=== PATIENT | male | born 1985 | race African-American/Black ===

== ENCOUNTER 2016-08-21 21:36 | Inpatient (IN) | payer MEDICAID ==
[~2016-08-21] VITALS: Ht 182.9 cm; Wt 68.3 kg
[2016-08-21] MEDS ORDERED: MORPHINE SULFATE 4 MG/ML, 1ML IV PRN (22:00)
[2016-08-21] MEDS ORDERED: SODIUM CHLORIDE FLUSH 10ML SYR IVF ONE (22:00)
[2016-08-21] MEDS ORDERED: VANCOMYCIN PER PHARMACY IV ONE (22:00)
[2016-08-21] MEDS ORDERED: AMPICILLIN/SULBACTAM 3 GM in SODIUM CHLORIDE 0.9% 100 ML IVPB ONE (22:00)
[2016-08-21] MEDS ORDERED: ONDANSETRON 2MG/ML, 2ML IVPush ONE (22:00)
[2016-08-21] MEDS ORDERED: SODIUM CHLORIDE 0.9% 1,000ML IVBOLUS ONE (22:00)
[2016-08-21] MEDS ORDERED: MORPHINE SULFATE 4 MG/ML, 1ML ONE (22:16)
[2016-08-21] MEDS ORDERED: ONDANSETRON 2MG/ML, 2ML ONE (22:16)
[2016-08-21] MEDS ORDERED: VANCOMYCIN 1,400 MG in SODIUM CHLORIDE 0.9% 250 ML IV ONE (22:30)
[2016-08-21 23:02] LABS: HEMOGLOBIN 15.9 g/dL (13.7-18.0)
[2016-08-21 23:15] LABS: BLOOD UREA NITROGEN 7 mg/dL (7-18)
[2016-08-21] MEDS ORDERED: PROPOFOL 10 MG/ML, 20ML ONE (23:55)
[2016-08-22] MEDS ORDERED: PROPOFOL 10 MG/ML, 20ML IVPush ONE ×2 (00:30)
[2016-08-22] MEDS ORDERED: MORPHINE SULFATE 4 MG/ML, 1ML ONE (00:56)
[2016-08-22] MEDS ORDERED: ACETAMINOPHEN 325 MG TABLET PO PRN (01:00)
[2016-08-22] MEDS: ENOXAPARIN 40 MG/0.4 ML SQ SCH (01:00)
[2016-08-22] MEDS ORDERED: DOCUSATE 100 MG CAPSULE PO PRN (01:00)
[2016-08-22] MEDS ORDERED: BISACODYL 10 MG SUPP PR PRN (01:00)
[2016-08-22] MEDS: NICOTINE 21 MG/24 HR PATCH.TD24 TD SCH (01:00)
[2016-08-22] MEDS ORDERED: ZOLPIDEM 5MG TABLET PO PRN (01:00)
[2016-08-22] MEDS ORDERED: ONDANSETRON 2MG/ML, 2ML IVP PRN (01:00)
[2016-08-22] MEDS ORDERED: POLYETHYLENE GLYCOL 17 GM PACKET PO PRN (01:00)
[2016-08-22] MEDS: MORPHINE SULFATE 4 MG/ML, 1ML IVPush PRN ×3 (01:02→21:17)
[2016-08-22 01:19] VITALS: BP 146/96
[2016-08-22] MEDS ORDERED: MORPHINE SULFATE 4 MG/ML, 1ML IVPush ONE (01:30)
[2016-08-22] MEDS: OXYcodone IR 5MG TABLET PO PRN ×3 (01:38→18:28)
[2016-08-22] MEDS ORDERED: DIPHENHYDRAMINE 50 MG/ML, 1ML IVPush PRN (02:30)
[2016-08-22] MEDS: CEFTAROLINE 600 MG in SODIUM CHLORIDE 0.9% 100 ML IV SCH ×2 (02:33→14:22)
[2016-08-22] MEDS: NS + 20MEQ KCL 1,000 ML IV SCH ×2 (02:33→12:35)
[2016-08-22 07:32] VITALS: BP 135/96
[2016-08-22 14:00] VITALS: BP 121/81
[2016-08-22 19:04] VITALS: BP 134/87
[2016-08-23 01:49] VITALS: BP 135/85
[2016-08-23] MEDS: OXYcodone IR 5MG TABLET PO PRN ×3 (02:06→10:09)
[2016-08-23] MEDS: NICOTINE 21 MG/24 HR PATCH.TD24 TD SCH (02:07)
[2016-08-23] MEDS: CEFTAROLINE 600 MG in SODIUM CHLORIDE 0.9% 100 ML IV SCH ×2 (02:46→17:04)
[2016-08-23 06:20] LABS: HEMOGLOBIN 14.9 g/dL (13.7-18.0)
[2016-08-23 06:34] LABS: BLOOD UREA NITROGEN 4 mg/dL (7-18)
[2016-08-23 06:38] LABS: ASPARTATE AMINO TRANSFERASE 19 U/L (15-37)
[2016-08-23 07:22] VITALS: BP 105/68
[2016-08-23] MEDS: ENOXAPARIN 40 MG/0.4 ML SQ SCH ×2 (09:00→12:53)
[2016-08-23] MEDS: MORPHINE SULFATE 4 MG/ML, 1ML IVPush PRN (12:53)
[2016-08-23 14:00] VITALS: BP 101/57
[2016-08-23] MEDS ORDERED: VANCOMYCIN PER PHARMACY MC PRN (17:30)
[2016-08-23] MEDS ORDERED: AMPICILLIN/SULBACTAM 3 GM in SODIUM CHLORIDE 0.9% 100 ML IV SCH (18:00)
[2016-08-23] MEDS ORDERED: PHARMACOKINETIC MONITORING MC PRN (20:00)
[2016-08-23] MEDS ORDERED: VANCOMYCIN 1,700 MG in SODIUM CHLORIDE 0.9% 250 ML IV SCH (20:00)
== END 2016-08-23 17:35 | disposition left against medical advice (07) | DRG 549 ==
LOC: ED 23:59 → 4NOR 08-22 00:37 → SUATTDRO 08-22 00:41 → 4NOR 08-22 01:11
PROC: 0HQFXZZ Repair Right Hand Skin, External Approach (ICD-10-PCS; principal; 2016-08-21)
DX: M00.9 Pyogenic arthritis, unspecified (principal); L03.113 Cellulitis of right upper limb; M65.841 Other synovitis and tenosynovitis, right hand; S61.411A Laceration without foreign body of right hand, initial encounter; E87.6 Hypokalemia; J45.909 Unspecified asthma, uncomplicated; Z53.21 Procedure and treatment not carried out due to patient leaving prior to being seen by health care provider; X58.XXXA Exposure to other specified factors, initial encounter; Z71.6 Tobacco abuse counseling; Y93.89 Activity, other specified; Z87.891 Personal history of nicotine dependence; Y92.098 Other place in other non-institutional residence as the place of occurrence of the external cause; Y99.8 Other external cause status
CPT/HCPCS: 36415; 80048; 80053; 82040; 83605; 83735; 84100; 85025; 85651; 86140; 87040; 96361; 96365; 96368; 96375; 99152; 99153; J0295; J0712; J1650; J2405; J2704; J3370; J3480; J1200; J7030; J7050

== ENCOUNTER 2017-08-24 18:40 | Emergency (ER) | payer MEDICAID ==
[~2017-08-24] VITALS: Ht 182.9 cm; Wt 80.0 kg
[2017-08-24 18:42] VITALS: BP 135/79
== END 2017-08-24 20:10 | disposition left against medical advice (07) ==
LOC: ED 20:04
DX: M79.672 Pain in left foot (principal); M79.671 Pain in right foot; Z53.21 Procedure and treatment not carried out due to patient leaving prior to being seen by health care provider